=== PATIENT | male | born 1965 | race Caucasian/White ===

== ENCOUNTER 2022-10-28 19:59 | Emergency (ER) | payer MEDICAID ==
[~2022-10-28] VITALS: Ht 177.8 cm; Wt 84.1 kg
[2022-10-29 04:14] VITALS: BP 153/101
== END 2022-10-29 04:41 | disposition home or self-care (01) ==
LOC: EMS 20:01
DX: F10.129 Alcohol abuse with intoxication, unspecified (principal); Z88.0 Allergy status to penicillin; Z88.8 Allergy status to other drugs, medicaments and biological substances; Y90.9 Presence of alcohol in blood, level not specified
CPT/HCPCS: 99285; Z7502